=== PATIENT | male | born 1950 | race Caucasian/White ===

== ENCOUNTER 2016-07-06 11:09 | Inpatient (IN) | payer MEDICARE, OTHER ==
[~2016-07-06] VITALS: Ht 160 cm; Wt 112.5 kg
--- NOTE | 2016-07-06 12:15 | NUR ---
RECEIVED PATIENT VIA GURNEY WITH TWO PEOPLE-ASSIST PATIENT TO TRANSFER TO BED. ROUTINE CARE ADMISSION RENDERED. ORIENT PATIENT TO THE UNIT, EDUCATION PROVIDED. VITAL SIGNS CHECK AND WNL. MD NOTIFIED AND MEDICATION RECONCILED. PAIN MEDICATION GIVEN. BREATHING EQUAL AND UNLABORED. NO DISTRESS NOTED. FALL PRECAUTION INITIATED. WILL CONTINUE TO MONITOR
[2016-07-06] MEDS: ACETAMINOPHEN 325 MG TABLET PO PRN ×2 (12:49→20:51)
[2016-07-06] MEDS ORDERED: HYDROCODONE/APAP 10-325 MG TABLET PO PRN (13:00)
--- NOTE | 2016-07-06 15:34 | NUR ---
[facility] left knee s/p TKR left knee 07/04, Pt lives at home w/ his Mariely neves and dtr delbert Liang [phone]. A&O x 4, Semi- Independent w/ ADL's, admitted for Acute rehab PT/OT therapy. Discuss Plan of care, Length of stay and DC planning, states he would like to go back home w/ his family, has good family support at home and would like homehealth assistance will provide her list of agencies prior to DC, has private transportation on DC. CM to follow up w/ patient's progress and DC planning.
[2016-07-06] MEDS ORDERED: TRAMADOL HCL 50 MG TABLET PO PRN (17:15)
[2016-07-06] MEDS: TRAMADOL HCL 50 MG TABLET PO PRN (17:49)
--- NOTE | 2016-07-06 19:30 | NUR ---
Received patient in stable condition. Patient is alert and oriented x4. Able to make needs known. Patient S/P left total knee Arthroplasty for severe osteoarthritis. Per day shift nurse, pt. tolerated PT post-op. No c/o pain and discomfort at this time. No acute distress noted. Patient is on Room Air. Bilateral lungs auscultated and clear. No abdominal distension noted. Dr. Fuentes in facility and examined patient. All needs attended to promptly. Call light within reach. Will continue to monitor. Addendum: 07/07/16 at 0513 by RACHEL IVAN RN 03:49 Patient c/o pain in L knee with pain level of 8/10. Pt. requested for Tramadol 50mg 1 tab PO given as ordered. Patient tolerated well. Reassessed patient at 04:49 and still noted with pain. Verbalized that left knee is still aching. Pt. given Tylenol 650mg PO as ordered. Patient is warm and dry to touch. Call light within reach. Bed in low position. Will continue to monitor. Addendum: 07/07/16 at 0552 by RACHEL IVAN RN Re-checked patient. Patient currently in bed asleep. No c/o pain at this time. All needs attended too. Call light within reach. Will continue to monitor.
[2016-07-06 19:37] VITALS: BP 132/78
[2016-07-06] MEDS: RIVAROXABAN 10 MG TABLET PO SCH (20:51)
[2016-07-06] MEDS ORDERED: RIVAROXABAN 10 MG TABLET PO SCH (21:00)
[2016-07-07] MEDS: TRAMADOL HCL 50 MG TABLET PO PRN (03:49)
[2016-07-07] MEDS: ACETAMINOPHEN 325 MG TABLET PO PRN (04:49)
[2016-07-07 06:42] VITALS: BP_SYST 116; BP_SYST 128; BP_DIAS 77; BP_DIAS 78
--- NOTE | 2016-07-07 07:20 | NUR ---
Report received from shift boss, no signs of acute distress noted. Patient is alert and oriented x4. No verbalized needs at this time. VS WNL. Complaints of pain noted, 12/03 from surgical wound in left knee. [place] 10-325mg 2 tabs for severe pain given per order. Will reassess pain level in 30 minutes for efficacy. Patient on RA. All needs attended to promptly. Call light within reach. Safety precautions maintained. Will continue to monitor.
--- NOTE | 2016-07-07 07:50 | NUR ---
Pain reassessment for [place] 10-325mg PRN for severe pain as per order, patient verbalizes more relief of pain, 6/10. No other needs at this time. Will continue to monitor and assess for pain.
[2016-07-07] MEDS: HYDROCODONE/APAP 10-325 MG TABLET PO PRN ×6 (08:13→22:44)
--- NOTE | 2016-07-07 08:21 | NUR ---
Received pt asleep. Aroused easily. A/O x4. c/o l knee pain #9/10, medicated with norco, see emar. Transferred to w/c with min assist after l knee immobilizer placed on for breakfast. Coordinated with PT/OT for poc for day.
[2016-07-07 09:40] VITALS: BP 109/73
--- NOTE | 2016-07-07 12:26 | NUR ---
Pt up in chair most of morning. Pt states he has not had a BM x3 days. Message left informing Dr. Fuentes and asking for medication orders for constipation at 1200. Requested pt to ask to bring several changes of clothing and a list of his present medications when she comes in at 1600 today, pt agreed. Was up in chair until 1100 then found in bed. Instructed pt to call for assist for all transfers, call light has been in reach throughout shift. Pt agrees to comply with safety precs. At 1200 c/o l knee pain #8/10. Medicated with [place] 2 tabs, see emar. Will transfer to w/c for lunch once pain relief achieved.
[2016-07-07] MEDS ORDERED: BISACODYL 5 MG TABLET.DR PO ONE (13:00)
[2016-07-07] MEDS: DOCUSATE SODIUM 100 MG CAPSULE PO SCH ×3 (14:00→22:43)
[2016-07-07] MEDS ORDERED: TRAM50TA2 PO (16:45)
[2016-07-07] MEDS ORDERED: ASPI81TA31 PO (16:45)
[2016-07-07] MEDS ORDERED: OMEP40CA37 PO (16:45)
--- NOTE | 2016-07-07 17:58 | NUR ---
dressing l knee changed after administering norco po for pain #9/10. Old dres removed, cleansed with sns, sterile telfa applied and secured with paper tape then l knee covered with hollie wrap. zacarias intact l knee, scant serosanguinous drainage on old dres, surrounded by bruising and swelling, no erythema. l knee immobilizer applied and pt transferred to / for dinner with min assist. pain now reporting l knee pain 3/10. remains in chair eating dinner.
[2016-07-07] MEDS: RIVAROXABAN 10 MG TABLET PO SCH (18:13)
--- NOTE | 2016-07-07 19:30 | NUR ---
received to care, asleep, in bed. no distress noted, call light in reach. assisted as needed. will continue to monitor closely.
[2016-07-07 22:30] VITALS: BP 117/80
--- NOTE | 2016-07-07 22:44 | NUR ---
pt is now awake. c/o left knee pain 7/10, on pain scale. also, oral temperature is 100.0 at this time, so PRN norco, 2 tabs, PO, was given, at this time.
--- NOTE | 2016-07-07 23:00 | NUR ---
appears to be asleep.
--- NOTE | 2016-07-07 23:44 | NUR ---
pt states good relief from pain med(5/10, on pain scale). oral temp is now 99.2. PO fluids were encouraged. call light remains in reach. no distress noted. will continue to monitor closely.
--- NOTE | 2016-07-08 00:15 | NUR ---
APPEARS TO BE ASLEEP. NO DISTRESS NOTED.
[2016-07-08] MEDS: HYDROCODONE/APAP 10-325 MG TABLET PO PRN ×5 (03:18→22:50)
--- NOTE | 2016-07-08 03:18 | NUR ---
pt is now awake. PRN norco, 2 tabs, given at this time, for left knee pain, 7/10 on pain scale.
--- NOTE | 2016-07-08 03:20 | NUR ---
oral temp is now 98.0
--- NOTE | 2016-07-08 04:18 | NUR ---
pt states good pain relief, from the norco (07/03)
--- NOTE | 2016-07-08 04:30 | NUR ---
continues to sleep. no distress noted.
--- NOTE | 2016-07-08 07:20 | NUR ---
Received patient and report from material handler 1st shift, patient in bed, AAOx4. No acute distress noted at this time, patient does not communicate any needs at this time. Complaints of pain 5/10, declines pain medication at this time. Will continue to reassess pain management. VS WNL. Lung sounds clear, even and unlabored breathing, O2 sat WNL on RA. No BM, will administer next dose of Colace as scheduled. Safety precautions maintained, call light within reach.
[2016-07-08 07:52] VITALS: BP 137/77
[2016-07-08] MEDS: DOCUSATE SODIUM 100 MG CAPSULE PO SCH ×2 (08:00→20:26)
--- NOTE | 2016-07-08 08:00 | NUR ---
Complaints of pain, 7/10 in left knee. No other acute signs of distress noted. VS WNL, breathing even and unlabored. [place] 10-325mg 2 tabs given as per order. Will continue to reassess pain level.
--- NOTE | 2016-07-08 08:30 | NUR ---
Pain level 5/10, relief of pain noted by patient. No other stated needs at this time. Safety precautions maintained.
--- NOTE | 2016-07-08 11:44 | NUR ---
Patient observed participating in PT, up in wheelchair. Complaints of pain 9/10, grimacing and rubbing site. VS WNL, [place] 10-325mg 2 tabs given as per order. Will continue to assess pain level. No other needs verbalized at this time. Safety precautions maintained.
--- NOTE | 2016-07-08 12:14 | NUR ---
Patient returned from PT, pain level 6/10, partial relief from medication. No other acute needs or signs of distress noted at this time. Patient brought back to bed, encouraged to relax and rest. Left leg elevated on pillow, all other needs met. Will continue to monitor.
[2016-07-08] MEDS: RIVAROXABAN 10 MG TABLET PO SCH (17:41)
--- NOTE | 2016-07-08 17:45 | NUR ---
Patient reports pain level at 8/10 in left knee. No other signs of distress noted, no signs of complications at site. VS WNL, [place] 10-325mg 2 tabs given as per ordered. Encouraged rest in bed and distraction with television. Will continue to monitor pain level and needs. Safety precautions maintained.
--- NOTE | 2016-07-08 18:15 | NUR ---
Pain level 5/10, no other acute distress verbalized. VS WNL, respirations even and unlabored. Call light within reach, instructed to call if pain increases. Safety precautions maintained. Will continue to monitor.
--- NOTE | 2016-07-08 18:32 | NUR ---
Report given to business analyst consultant. Patient with no signs of acute distress, no needs verbalized at this time. Patient laying in bed comfortably, call light within reach. Safety precautions maintained.
--- NOTE | 2016-07-08 19:00 | NUR ---
Report received from LIANNA Burch.
[2016-07-08 20:00] VITALS: BP 138/77
--- NOTE | 2016-07-08 20:00 | NUR ---
Seen patient lying on hospital bed in semi samuel's position. AOX4, follows commands. Head to assessment performed, lung sound clear all lobes, heart sounds presence of S1S2. Bowel sound are hyperactive, pt stated no BM for couple of days, abdomen is soft to touch. Pt uses urinal, drained 200mls.Left knee had a dressing intact, secured w/ bandage, purplish blue hematoma at the right side of affected knee. Pedal pulses present bilateral foot. SCD on at right leg and elevated left leg with 1 pillow.Made him comfortable, turn and repositioned , stretched linens, covered with bed sheet. Fall safety measures maintained. Call lights and table within reach. VS stable.
--- NOTE | 2016-07-08 21:00 | NUR ---
Administered Colace 100mg/p, drank water and tolerated very well. Encouraged to drink more fluids juan ramon during day time and eat high fiber food, verbalized understanding.
--- NOTE | 2016-07-08 22:00 | NUR ---
Found pt resting comfortably.Breathing normally.
--- NOTE | 2016-07-08 23:00 | NUR ---
Given [place] 2 tabs per pt's request, pain level 6/10 at left knee, assessed left knee, bruises/hematoma around surgical wound,normal to touch, facial grimace observed, non radiating however, pt also occasionally touches his rt knee/leg/thigh a lot, pt had a scar on his rt leg (Rt. TKR 4 months ago). Continue to wrap left knee with bandage and elevated with pillow.
--- NOTE | 2016-07-09 01:00 | NUR ---
Rounds made to pt's room, found pt resting comfortably.
--- NOTE | 2016-07-09 03:00 | NUR ---
Pt continue to be in resting/sleeping mode. Breathing normally.Continue monitor.
--- NOTE | 2016-07-09 05:00 | NUR ---
Resting comfortably.Observed patient breathing normally.Continue monitor.
--- NOTE | 2016-07-09 06:55 | NUR ---
Seen patient resting/sleeping comfortably.Breathing normally.Continue monitor.
--- NOTE | 2016-07-09 07:00 | NUR ---
Spongerichth c/o patient. Changed his clothes by himself. Left leg dressing changed using aseptic technique, cleansed with NS, patted dry and covered with abd pad, secured w/ bandage. Took a picture of left leg, see photos in the chart.report to Jaron RN
--- NOTE | 2016-07-09 07:10 | NUR ---
PT IS LAYING IN BED COMFORTABLY. NO S/S OF RESPIRATORY DISTRESS NOTED. ALL SAFETY NEEDS ARE MET. WILL CONTINUE TO MONITOR.
[2016-07-09] MEDS: HYDROCODONE/APAP 10-325 MG TABLET PO PRN ×3 (07:44→21:07)
[2016-07-09] MEDS: DOCUSATE SODIUM 100 MG CAPSULE PO SCH ×2 (08:08→21:00)
[2016-07-09 12:29] VITALS: BP 140/88
--- NOTE | 2016-07-09 16:31 | NUR ---
Received call from pharmacy regarding notifying MD to reconcile home medications for patient. Dr. Fuentes notified to reconcile medications. Informed by Dr. Fuentes that he would be in tomorrow AM to reconcile medication list.
[2016-07-09] MEDS: RIVAROXABAN 10 MG TABLET PO SCH (17:00)
--- NOTE | 2016-07-09 18:01 | NUR ---
PATIENT HAS BEEN MEDICATED FOR ACHING PAIN. PT REFUSED TO AMBULATE. PT STATES "LATER".
--- NOTE | 2016-07-09 19:30 | NUR ---
Patient received in bed in stable condition. No c/o pain and discomfort at this time. No s/s of acute distress. Report received from David.
--- NOTE | 2016-07-09 20:00 | NUR ---
Patient laying in bed. Alert and oriented x4. Able to make needs known. Patient is mongolian speaking. No c/o pain and discomfort at this time. No s/s of acute distress. No SOB noted. Patient on Room Air. Head to toe assessment done. Bilateral lung auscultated and are clear. No abdominal distention noted. Bowel sounds are hyperactive. Patient is continent and uses urinal as needed. Draining 300ml of clear yellow urine. Left knee dressing is clean, dry and intact. Secured with bandage. Pt. still noted. with bruising around left knee surgical site. Pedal pulses present on bilateral foot. SCD's applied on right foot and affected knee elevated with pillow. Vital signs are stable at this time. Patient kept clean and dry. All needs attended to promptly. Call light within reach. Will continue to monitor patient.
--- NOTE | 2016-07-09 21:00 | NUR ---
Patient requested for [place] 10-325mg two tablets. Pain level is 5/10. Facial grimacing noted and touching left knee. Left knee still noted with bruising. No bleeding noted at surgical site. Dressing still remains clean and intact. Left knee kept elevated with pillow. Patient tolerated medication well. All needs attended to promptly. Call light within reach. Will continue to monitor.
--- NOTE | 2016-07-09 23:00 | NUR ---
Patient sleeping comfortably in bed. No s/s of SOB or acute distress. Breathing normally. Will continue to monitor.
--- NOTE | 2016-07-10 | NUR ---
Patient awake and laying in bed while watching TV at this time. Patient verbalize that pain level is a 5/10. No facial grimacing and discomfort noted at this time. Patient is resting comfortably. All needs attended to promptly. Call light within reach. Will cont. to monitor.
[2016-07-10] MEDS: HYDROCODONE/APAP 10-325 MG TABLET PO PRN ×2 (02:41→08:35)
--- NOTE | 2016-07-10 06:32 | NUR ---
Patient still asleep comfortably. Breathing normally. Will continue to monitor.
[2016-07-10] MEDS: DOCUSATE SODIUM 100 MG CAPSULE PO SCH ×2 (08:35→21:00)
[2016-07-10] MEDS ORDERED: KETOROLAC TROMETHAMINE 60 MG INJ IM ONE (11:00)
[2016-07-10] MEDS: MIRALAX 17 GM POWD.PACK PO SCH (11:34)
[2016-07-10] MEDS: HYDROMORPHONE HCL 2 MG TABLET PO PRN ×3 (14:44→22:45)
[2016-07-10] MEDS: RIVAROXABAN 10 MG TABLET PO SCH (18:19)
[2016-07-10] MEDS ORDERED: POLY119P2 PO (18:45)
[2016-07-10] MEDS ORDERED: POLYETHYLENE GLYCOL 3350 238 GM POWDER PO SCH (19:45)
[2016-07-10] MEDS ORDERED: TRAMADOL HCL 50 MG TABLET PO PRN (19:45)
[2016-07-10] MEDS: ASPIRIN 81 MG TAB.CHEW PO SCH (19:45)
[2016-07-10] MEDS ORDERED: Medication Not On Formulary EA (Omeprazole 40 MG) PO SCH (19:45)
--- NOTE | 2016-07-10 19:48 | NUR ---
Patient sleeping with no s/s of acute distress. Pain meds given as ordered. Needs attended. Verbalized a decrease in intensity after interventions. Call light kept within reach. Frequent checks done. Endorsed accordingly.
[2016-07-10] MEDS: PANTOPRAZOLE SODIUM 40 MG TABLET.DR PO SCH (20:00)
[2016-07-10 22:15] VITALS: BP 137/84
[2016-07-11] MEDS: HYDROMORPHONE HCL 2 MG TABLET PO PRN ×3 (04:54→11:57)
[2016-07-11] MEDS: PANTOPRAZOLE SODIUM 40 MG TABLET.DR PO SCH (06:35)
--- NOTE | 2016-07-11 06:38 | NUR ---
Patient slept intermittently throughout the night, did c/o of L knee pain and pain medication was administered for comfort as needed with some relief. Patient has call light within reach and all needs have been attended to. Will continue to monitor.
[2016-07-11] MEDS: MIRALAX 17 GM POWD.PACK PO SCH (09:21)
[2016-07-11] MEDS: DOCUSATE SODIUM 100 MG CAPSULE PO SCH (09:22)
[2016-07-11] MEDS: ASPIRIN 81 MG TAB.CHEW PO SCH (09:22)
--- NOTE | 2016-07-11 12:36 | NUR ---
Patient was D/C home with order from MD. No prescription given.They given discharged instruction. 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 He"s accompanied by .stable condition and pain as tolerated.
[2016-07-11 13:58] VITALS: BP 137/84
== END 2016-07-11 12:35 | disposition home health service (06) | DRG 554 ==
PROVIDERS: ADMIT Physical Medicine & Rehabilitation Pain Medicine; ATTEND Physical Medicine & Rehabilitation Pain Medicine
DX: M17.12 Unilateral primary osteoarthritis, left knee (principal); Z68.41 Body mass index [BMI] 40.0-44.9, adult; K59.00 Constipation, unspecified; E66.9 Obesity, unspecified; I10 Essential (primary) hypertension; Z96.653 Presence of artificial knee joint, bilateral
CPT/HCPCS: 97001; 97003; 97110; 97112; 97116; 97530; 97535; A4663; J1885